=== PATIENT | female | born 1995 | race Two or more races ===

== ENCOUNTER 2016-07-18 00:36 | Emergency (ER) | payer SELFPAY ==
[~2016-07-18] VITALS: Ht 157.5 cm; Wt 50.8 kg
[2016-07-18 00:43] VITALS: BP 118/62
[2016-07-18] MEDS ORDERED: ALBUTEROL FS 2.5 MG/0.5 ML VIAL.NEB ONE (00:55)
[2016-07-18] MEDS ORDERED: IPRATROPIUM NEB FS 0.5 MG/2.5 ML AMPUL.NEB ONE (00:55)
--- NOTE | 2016-07-18 00:59 | NUR ---
rt at bedside for hhn tx.
[2016-07-18] MEDS ORDERED: IPRATROPIUM NEB FS 0.5 MG/2.5 ML AMPUL.NEB NEB ONE (01:00)
[2016-07-18] MEDS ORDERED: ALBUTEROL FS 2.5 MG/0.5 ML VIAL.NEB NEB ONE (01:00)
== END 2016-07-18 02:18 | disposition home or self-care (01) ==
LOC: ER 00:38
DX: J98.01 Acute bronchospasm (principal)
CPT/HCPCS: 71010; 94640; 99283; A4606; Z7610